=== PATIENT | female | born 1955 | race Caucasian/White ===

== ENCOUNTER 2018-09-06 07:59 | Inpatient (IN) | payer OTHER, MEDICAID ==
[~2018-09-06] VITALS: Ht 162.6 cm; Wt 54.9 kg
[2018-09-06] MEDS ORDERED: METO-396 PO (08:05)
[2018-09-06 09:01] LABS: BASOPHILS % 0.6 % (0.0-2.0); EOSINOPHILS % 1.6 % (0.0-5.0); HEMATOCRIT. 40.3 % (36.0-48.0); HEMOGLOBIN. 13.3 g/dL (12.0-16.0); LYMPHOCYTES % 31.7 % (20.0-50.0); MEAN CORPUSCULAR HEMOGLOBIN 27.3 pg (28.0-32.0); MEAN CORPUSCULAR VOLUME 82.8 fL (81.0-99.0); MEAN PLATELET VOLUME 8.1 fl (7.4-10.4); NEUTROPHILS % 59.1 % (40.0-76.0); PLATELET 179 x1000/uL (130-400); RED BLOOD CELL COUNT 4.87 mill/uL (4.2-5.4)
[2018-09-06 09:19] LABS: CHLORIDE 106 mEq/L (98-107)
[2018-09-06] MEDS ORDERED: FUROSEMIDE 40MG/4ML VIAL IVP ONE (11:00)
[2018-09-06] MEDS ORDERED: ASPIRIN 81MG TABLET PO ONE (11:00)
[2018-09-06] MEDS ORDERED: ACETAMINOPHEN 325MG TABLET PO PRN (16:15)
[2018-09-06] MEDS ORDERED: IPRATROPIUM/ALBUTEROL 0.5-3(2.5)MG/3ML NEB INH PRN (16:15)
[2018-09-06] MEDS ORDERED: ONDANSETRON HCL 4MG/2ML INJ IV PRN (16:15)
[2018-09-06] MEDS ORDERED: HYDROCODONE/ACETAMINOPHEN 5/325MG TABLET PO PRN (16:15)
[2018-09-06 23:56] VITALS: BP 93/65
[2018-09-06 23:58] VITALS: BP 93/56
[2018-09-07] VITALS: BP_SYST 84; BP_SYST 89; BP_SYST 93; BP_DIAS 60; BP_DIAS 65; BP_DIAS 69
[2018-09-07 04:00] VITALS: BP 91/51
[2018-09-07 07:30] LABS: BASOPHILS % 0.3 % (0.0-2.0); HEMATOCRIT. 42.7 % (36.0-48.0); LYMPHOCYTES % 28.9 % (20.0-50.0); MEAN CORPUSCULAR VOLUME 82.6 fL (81.0-99.0); MEAN PLATELET VOLUME 8.4 fl (7.4-10.4); NEUTROPHILS % 58.8 % (40.0-76.0); PLATELET 216 x1000/uL (130-400); RED BLOOD CELL COUNT 5.17 mill/uL (4.2-5.4); RED CELL DISTRIBUTION WIDTH 16.3 % (11.6-14.6)
[2018-09-07 07:37] LABS: CHLORIDE 103 mEq/L (98-107)
[2018-09-07 08:00] VITALS: BP 98/72
[2018-09-07 08:10] LABS: CREATINE KINASE 129 IU/L (26-192); CREATINE KINASE MB FRACTION 2.6 ng/mL (0.5-3.6); HDL CHOLESTEROL 45 mg/dL (40-59); LDL CHOLESTEROL 122 mg/dL (5-100); T4 FREE 1.01 ng/dL (0.76-1.46)
[2018-09-07] MEDS: METOPROLOL TARTRATE 25MG TABLET PO SCH ×2 (09:00→21:00)
[2018-09-07] MEDS: ASPIRIN 81MG EC TABLET PO SCH (09:46)
[2018-09-07] MEDS: ENOXAPARIN 40MG/0.4ML SYR SUBCUT SCH (09:48)
[2018-09-07] MEDS ORDERED: ATOR20TA65 MT (10:32)
[2018-09-07 10:37] LABS: *AMPHETAMINES SCREEN URINE NEGATIVE (NEGATIVE); *BARBITURATES SCREEN URINE NEGATIVE (NEGATIVE); *BENZODIAZEPINES SCREEN URINE NEGATIVE (NEGATIVE); *COCAINE SCREEN URINE NEGATIVE (NEGATIVE); CANNABINOID URINE SCREEN NEGATIVE (NEGATIVE); METHADONE URINE SCREEN NEGATIVE (NEGATIVE); OPIATES URINE SCREEN NEGATIVE (NEGATIVE); PHENCYCLIDINE URINE SCREEN NEGATIVE (NEGATIVE)
[2018-09-07 12:00] VITALS: BP 103/58
[2018-09-07] MEDS ORDERED: INFLUENZA VIRUS VACCINE(AFLURIA) 0.5ML SYR IM ONE (12:00)
[2018-09-07 16:00] VITALS: BP 93/58
[2018-09-07] MEDS ORDERED: DOCUSATE SODIUM 100MG CAPSULE PO PRN (19:45)
[2018-09-07] MEDS ORDERED: HYDROCODONE/ACETAMINOPHEN 5/325MG TABLET PO PRN (19:45)
[2018-09-07] MEDS ORDERED: DIPHENHYDRAMINE 50MG/ML VIAL IV PRN (19:45)
[2018-09-07 20:00] VITALS: BP 117/88
[2018-09-08] VITALS (7 sets, daily range): BP systolic 90–107; BP diastolic 51–61
[2018-09-08 06:54] LABS: HEMATOCRIT 40.1 % (36.0-48.0); HEMOGLOBIN 13.4 g/dL (12.0-16.0); MEAN CORPUSCULAR HEMOGLOBIN 27.6 pg (28.0-32.0); MEAN CORPUSCULAR VOLUME 82.4 fL (81.0-99.0); PLATELET 203 x1000/uL (130-400); RED BLOOD CELL COUNT 4.87 mill/uL (4.2-5.4)
[2018-09-08 07:22] LABS: CHLORIDE 104 mEq/L (98-107)
[2018-09-08] MEDS: ENOXAPARIN 40MG/0.4ML SYR SUBCUT SCH (08:38)
[2018-09-08] MEDS: ASPIRIN 81MG EC TABLET PO SCH (08:38)
[2018-09-08] MEDS ORDERED: REGADENOSON 0.4 MG/5 ML IV NR (10:00)
== END 2018-09-08 16:40 | disposition home or self-care (01) | DRG 73 ==
LOC: ER 07:59 → 8WST 11:28 → ENRESERV 21:59
PROVIDERS: ADMIT Internal Medicine; ATTEND Internal Medicine
DX: G90.8 Other disorders of autonomic nervous system (principal); I50.33 Acute on chronic diastolic (congestive) heart failure; I31.3 Pericardial effusion (noninflammatory); I42.1 Obstructive hypertrophic cardiomyopathy; I49.9 Cardiac arrhythmia, unspecified; R55 Syncope and collapse; I11.0 Hypertensive heart disease with heart failure; I95.9 Hypotension, unspecified; I45.4 Nonspecific intraventricular block; Z88.0 Allergy status to penicillin
CPT/HCPCS: 36415; 71045; 78452; 80048; 80061; 80305; 82550; 82553; 83735; 83880; 84439; 84443; 84484; 85027; 85379; 90686; 93005; 93017; 93306; 93970; 96374; 99285; A9500; J1650; J1940